=== PATIENT | male | born 1960 | race Caucasian/White ===

== ENCOUNTER 2021-10-24 11:51 | Inpatient (IN) | payer OTHER ==
[~2021-10-24] VITALS: Ht 172.7 cm; Wt 142.2 kg
[2021-10-24 12:05] VITALS: BP 127/55
[2021-10-24 12:32] LABS: BASO # 0.1 10*3/uL (0.0-0.1); BASO % 0.5 % (0.0-1.0); HEMATOCRIT 39.8 % (42.0-52.0); LYMPH # 1.1 10*3/uL (1.3-4.4); LYMPH % 9.2 % (27.0-41.0); MEAN CELL VOLUME 91.5 fl (80.0-94.0); MEAN CORPUSCULAR HGB 30.6 pg (27.0-31.0); MEAN CORPUSCULAR HGB CONC 33.4 g/dl (33.0-37.0); MEAN PLATELET VOLUME 9.8 fl (9.6-12.3); MONO % 8.3 % (3.0-9.0); NEUT # 9.6 10*3/uL (2.3-7.9); NEUT % 81.6 % (47.0-73.0); PLATELET COUNT AUTOMATED 233 10*3/uL (130-400); RED BLOOD COUNT 4.35 10*6/uL (4.50-5.90); RED CELL DISTRI WIDTH 13.6 % (0-14.5); WHITE BLOOD COUNT 11.7 10*3/uL (4.8-10.8)
[2021-10-24 12:43] LABS: ACT PARTIAL THROMBO TIME 28.5 SECONDS (20.0-32.1)
[2021-10-24 12:50] LABS: ALKALINE PHOSPHATASE 105 U/L (45-117); BUN 17 mg/dl (7-24); CHLORIDE 110 mmol/L (98-107); CREATININE 0.96 mg/dL (0.70-1.30); LIPASE 82 U/L (73-393); POTASSIUM 3.8 mmol/L (3.5-5.1); SGOT/AST 12 IU/L (3-35); SGPT/ALT 27 U/L (12-78); SODIUM 134 mmol/L (136-145); TOTAL PROTEIN 6.5 gm/dL (6.4-8.2)
[2021-10-24 18:38] VITALS: BP 129/51
[2021-10-24 18:50] VITALS: BP 134/59
[2021-10-24] MEDS ORDERED: GLIMEPIRIDE2 MG PO (19:10)
[2021-10-24] MEDS ORDERED: NEURONTIN300 MG PO (19:10)
[2021-10-24] MEDS ORDERED: LISINOPRIL40 MG PO (19:11)
[2021-10-24] MEDS ORDERED: JANUVIA100 MG PO (19:11)
[2021-10-24] MEDS ORDERED: METFORMIN HYD1000 MG PO (19:12)
[2021-10-24] MEDS ORDERED: LIPITOR20 MG PO (19:12)
[2021-10-24 20:00] VITALS: BP 134/59
[2021-10-25] VITALS: BP 112/49
[2021-10-25 06:17] LABS: BASO % 0.4 % (0.0-1.0); EOS # 0.1 10*3/uL (0.0-0.4); EOS % 0.7 % (1.0-4.0); HEMATOCRIT 38.7 % (42.0-52.0); LYMPH # 1.4 10*3/uL (1.3-4.4); LYMPH % 12.4 % (27.0-41.0); MEAN CELL VOLUME 93.9 fl (80.0-94.0); MEAN CORPUSCULAR HGB 30.6 pg (27.0-31.0); MEAN CORPUSCULAR HGB CONC 32.6 g/dl (33.0-37.0); MONO % 9.1 % (3.0-9.0); NEUT # 8.4 10*3/uL (2.3-7.9); NEUT % 76.8 % (47.0-73.0); PLATELET COUNT AUTOMATED 220 10*3/uL (130-400); RED BLOOD COUNT 4.12 10*6/uL (4.50-5.90); RED CELL DISTRI WIDTH 13.6 % (0-14.5)
[2021-10-25 06:42] LABS: BUN 15 mg/dl (7-24); CHLORIDE 110 mmol/L (98-107); CHOLESTEROL 159 mg/dL (<200); CREATININE 0.65 mg/dL (0.70-1.30); POTASSIUM 3.8 mmol/L (3.5-5.1); SGOT/AST 14 IU/L (3-35); SGPT/ALT 26 U/L (12-78); SODIUM 140 mmol/L (136-145)
[2021-10-25 06:46] LABS: ALKALINE PHOSPHATASE 91 U/L (45-117); FREE T4 0.96 ng/dl (0.76-1.46); LDL CHOLESTEROL 83 mg/dL (9-159); TOTAL PROTEIN 6.1 gm/dL (6.4-8.2); TRIGLYCERIDES 121 mg/dl (<150)
[2021-10-25 08:00] VITALS: BP 123/53
[2021-10-25 08:24] LABS: VITAMIN D, 25-HYDROXY 16.9 ng/mL (30-100)
[2021-10-25 12:00] VITALS: BP 120/50
[2021-10-25 16:00] VITALS: BP 128/60
[2021-10-25 20:00] VITALS: BP 128/62
[2021-10-26] VITALS: BP 115/60
[2021-10-26 08:00] VITALS: BP 140/53
[2021-10-26 12:00] VITALS: BP 116/63
[2021-10-26 14:00] VITALS: BP 119/51
[2021-10-26 20:00] VITALS: BP 118/59
[2021-10-27] VITALS: BP 116/73
[2021-10-27 05:47] LABS: BUN 15 mg/dl (7-24); CREATININE 0.72 mg/dL (0.70-1.30)
[2021-10-27 08:00] VITALS: BP 137/64
[2021-10-27 12:00] VITALS: BP 123/46
[2021-10-27 16:00] VITALS: BP 150/74
[2021-10-27 20:00] VITALS: BP 142/59
[2021-10-28] VITALS: BP 137/70
[2021-10-28 08:00] VITALS: BP 148/77
[2021-10-28 12:00] VITALS: BP 143/73
[2021-10-28 16:00] VITALS: BP 142/65
[2021-10-28 20:00] VITALS: BP 134/50
[2021-10-29] VITALS: BP 134/71
[2021-10-29 06:06] LABS: BUN 15 mg/dl (7-24); CHLORIDE 108 mmol/L (98-107); CREATININE 0.72 mg/dL (0.70-1.30); SODIUM 138 mmol/L (136-145)
[2021-10-29 06:13] LABS: BASO # 0.1 10*3/uL (0.0-0.1); BASO % 1.3 % (0.0-1.0); EOS # 0.3 10*3/uL (0.0-0.4); EOS % 2.9 % (1.0-4.0); HEMATOCRIT 38.6 % (42.0-52.0); LYMPH # 1.7 10*3/uL (1.3-4.4); LYMPH % 19.9 % (27.0-41.0); MEAN CELL VOLUME 94.4 fl (80.0-94.0); MEAN CORPUSCULAR HGB 30.3 pg (27.0-31.0); MEAN CORPUSCULAR HGB CONC 32.1 g/dl (33.0-37.0); MEAN PLATELET VOLUME 10.1 fl (9.6-12.3); MONO # 0.8 10*3/uL (0.1-1.0); MONO % 9.2 % (3.0-9.0); NEUT # 5.5 10*3/uL (2.3-7.9); NEUT % 63.7 % (47.0-73.0); PLATELET COUNT AUTOMATED 250 10*3/uL (130-400); RED BLOOD COUNT 4.09 10*6/uL (4.50-5.90); RED CELL DISTRI WIDTH 13.2 % (0-14.5); WHITE BLOOD COUNT 8.6 10*3/uL (4.8-10.8)
[2021-10-29 08:00] VITALS: BP 150/77
[2021-10-29 12:27] VITALS: BP 127/55
[2021-10-29] MEDS ORDERED: VITAMIN D350 MC2 PO (15:05)
[2021-10-29] MEDS ORDERED: VIBRAMYCIN100 MG PO (15:05)
[2021-10-29] MEDS ORDERED: ELIQUIS5 M1 PO (15:05)
[2021-10-29] MEDS ORDERED: VALACYCLOVIR H500 MG PO (15:05)
[2021-10-29 16:00] VITALS: BP 121/48
[2021-10-29 20:00] VITALS: BP 114/44
[2021-10-30] VITALS: BP 121/55
[2021-10-30 08:00] VITALS: BP 146/65
[2021-10-30 12:00] VITALS: BP 139/58
[2021-10-30 16:00] VITALS: BP 140/62
[2021-10-30 20:00] VITALS: BP 135/55
[2021-10-31] VITALS: BP 133/58
[2021-10-31 08:00] VITALS: BP 141/66
[2021-10-31] MEDS ORDERED: VITAMIN D31250 MCG PO (08:52)
== END 2021-10-31 11:30 | disposition home or self-care (01) | DRG 720 ==
LOC: ED 11:51 → 4E 14:56 → EDHOLD 14:56 → 4E 18:12
PROVIDERS: Emergency Medicine; Family Medicine; Registered Nurse; ADMIT Internal Medicine; ATTEND Internal Medicine
PROC: 5A09357 Assistance with Respiratory Ventilation, Less than 24 Consecutive Hours, Continuous Positive Airway Pressure (ICD-10-PCS; principal; 2021-10-26)
PROC: 5A09357 Assistance with Respiratory Ventilation, Less than 24 Consecutive Hours, Continuous Positive Airway Pressure (ICD-10-PCS; 2021-10-27)
DX: A41.9 Sepsis, unspecified organism (principal); L03.115 Cellulitis of right lower limb; D64.9 Anemia, unspecified; E87.1 Hypo-osmolality and hyponatremia; E87.2 Acidosis; E87.8 Other disorders of electrolyte and fluid balance, not elsewhere classified; Z20.822 Contact with and (suspected) exposure to COVID-19; E44.0 Moderate protein-calorie malnutrition; R79.89 Other specified abnormal findings of blood chemistry; E11.65 Type 2 diabetes mellitus with hyperglycemia; I10 Essential (primary) hypertension; E78.5 Hyperlipidemia, unspecified; G47.30 Sleep apnea, unspecified; Z79.899 Other long term (current) drug therapy; Z98.84 Bariatric surgery status; Z80.0 Family history of malignant neoplasm of digestive organs; Z82.49 Family history of ischemic heart disease and other diseases of the circulatory system; Z68.42 Body mass index [BMI] 45.0-49.9, adult